=== PATIENT | female | born 1935 | race Caucasian/White ===

== ENCOUNTER 2020-12-13 13:01 | Emergency (ER) | payer MEDICARE, OTHER, SELFPAY ==
[2020-12-13 13:07] VITALS: BP 145/78; PULSE 90; RESP 18; TEMP 36.8; O2SAT 99
--- NOTE | 2020-12-13 13:15 | DI.RAD_ITS ---
Exam(s) XR ELBOW RT COMPLETE EXAM: XR ELBOW RT COMPLETE CLINICAL HISTORY: fall and pain. TECHNIQUE: 2D digital imaging was performed. COMPARISON: No exams were available for comparison FINDINGS: BONES: No acute fracture is present. No bony destructive lesion is seen. JOINTS: The elbow is normally aligned. No joint effusion is seen. Advanced degenerative changes at t he elbow joint. SOFT TISSUE: Normal. IMPRESSION: Unremar degenerative changes. DATA REPOSITORY: RADIATION DOSE DELIVERED:
--- NOTE | 2020-12-13 13:15 | DI.RAD_ITS ---
Exam(s) XR HIP RT COMPLETE AP PELVIS EXAM: XR HIP RT COMPLETE AP PELVIS INDICATION: fall, R hip pain. COMPARISON: No exams were available for comparison TECHNIQUE: 2D digital imaging was performed. FINDINGS: Bilateral hip prostheses. No evidence of dislocation. No fracture. AC joints and pubic symphysis not widened. Degenerative changes at AC joints. Surgical clips in the pelvis. IMPRESSION: Bilateral hip prostheses. No acute abnormality. DATA REPOSITORY: RADIATION DOSE DELIVERED:
--- NOTE | 2020-12-13 13:15 | DI.RAD_ITS ---
Exam(s) XR KNEE RT 3V AP,LAT,BLAIR EXAM: XR KNEE RT 3V AP,LAT,BLAIR CLINICAL HISTORY: anterior pain after fall. TECHNIQUE: 2D digital imaging was performed. COMPARISON: No exams were available for comparison FINDINGS: BONES: No acute fracture is present. No bony destructive lesion is seen. JOINTS: The knee is normally aligned. No joint effusion is seen. Severe degenerative changes greatest in the medial femoral tibial joint. Prominent periarticular spurring. SOFT TISSUE: Vascular calcifications. IMPRESSION: Severe degenerative changes. No acute fracture.. DATA REPOSITORY: RADIATION DOSE DELIVERED:
--- NOTE | 2020-12-13 13:16 | ED.GENADUL_ITS ---
Discharge Plan Disposition Patient Disposition: HOME Condition: Improving Discharge Details Clinical Impression: Arm contusion, Contusion of right knee Primary Care Provider: Kyra Odell ED Provider: Koby Charles Home Meds and New Rx's Prescriptions: Continued aspirin 81 mg Tablet,Delayed Release (Dr/Ec) RF: 0 thyroid 60 mg Tablet PO RF: 0 Discharge Instructions Instructions: Contusion in Adults (ED) Additional Instructions: You underwent x-ray of the pelvis, right hip, right knee, and right elbow. May wear right elbow sling as needed for comfort. We will place a referral to the orthopedic clinic on your behalf. Please call the clinic at [phone] for an appointment time. You certainly have muscular and bony contusions. You may have persistent muscular soreness over 1 to 2 days time. Tylenol and/or ibuprofen as needed for pain. Return to emergency department for any acute concerns. Medical Decision Making Pleasant and delightful 85-year-old female presents from home after trip and fall from ground-level on December 10. She is developed achy right elbow, right hip and right knee pain. She has been ambulatory. Referred for x-ray which does not reveal acute findings or injury. The right elbow does show joint space narrowing and marginal osteophyte formation. She has some persistent swelling there and I will place her in a sling with orthopedic follow-up. Patient reassured. She clearly has contusions and muscular soreness. She is stable and appropriate for outpatient management. She understands indications to seek reevaluation. HPI General Mode of arrival: ambulatory . Date/Time Provider Initiated Documentation: 12/13/20 13:02 . Limitations to Documentation: no limitations . Information obtained by: patient . History of Present Illness 85 year old F presents to the emergency department with the chief complaint of Fall on December 10, described as moderate, Quality is described as dull and constant, and is localized to the right, upper extremity and lower extremity. Patient reports no radiation. Patient started experiencing this day(s) and it has been intermittent. Rest improves symptom(s), Movement worsens symptoms . Patient notes denies headaches, loss of appetite, syncope and weakness. Patient did receive the following treatments prior to arrival, none Related Data Home Medications Medication Instructions Recorded Confirmed aspirin 12/13/20 thyroid mg PO 12/13/20 Allergies Allergy/AdvReac Type Severity Reaction Status Date / Time Penicillins Allergy Unverified 12/13/20 13:12 General Stated Complaint: Orthopedic BRANDON: 3 Review of Systems Narrative: No loss of conscious. No neck or back pain. Denies headache. Recently has been well. Ambulatory. 6 systems reviewed and otherwise negative [facility] Social History Smoking/Tobacco Use Status: Never Smoking risk assessment performed?: Yes Alcohol Intake: never Substance use type: does not use Do you feel safe at home: Yes Do you feel safe in your relationship?: Yes Additional Social history: pt sttates that she just moved to [place] from [facility] Exam Narrative Exam Narrative: GEN: awake, alert, oriented 3. Pleasant, well groomed, inte ractive. HEAD: Normocephalic, atraumatic ENT: Mucous membranes moist, oropharynx unremarkable, External ear exam unremarkable EYES: PERRL, EOMI NECK: Full ROM, no NEPTALI, no menigismus CHEST/RESP: Nontender ABDOMEN: Nontender EXT: Full ROM, no edema, no rash. Tender right medial tibia proximally, no joint laxity. Tender right proximal radius. No tenderness with internal or external rotation of the right hip. Left side unremarkable. Neuro: Grossly normal neurologic exam, conversant, interactive. Psych: Speech fluent, thoughts congruent, affect normal Course Vital Signs Vital signs: Vital Signs Temperature 36.8 C 12/13/20 13:07 Pulse 90 12/13/20 13:07 Respiratory Rate 18 12/13/20 13:07 Blood Pressure 145/78 H 12/13/20 13:07 Pulse Oximetry 99 12/13/20 13:07 Temperature 36.8 C 12/13/20 13:07 Temperature Source Temporal Artery Scan 12/13/20 13:07 Pulse 90 12/13/20 13:07 Respiratory Rate 18 12/13/20 13:07 Blood Pressure 145/78 H 12/13/20 13:07 Pulse Oximetry 99 12/13/20 13:07 Oxygen Delivery Method Room Air 12/13/20 13:07 Oxygen Flow Rate 0 12/13/20 13:07
--- NOTE | 2020-12-13 14:18 | DI.VRAD_ITS ---
PROCEDURE INFORMATION: Exam: XR Right Knee Exam date and time: 12/13/2020 1:16 PM Age: 85 years old Clinical indication: Patient HX: PT fell on 12/10/2020, right knee pain TECHNIQUE: Imaging protocol: XR Right knee. Views: 3 views. COMPARISON: No relevant prior studies available. FINDINGS: Bones/joints: There is marked narrowing of the mediolateral and patellofemoral compartment. With marginal osteophyte formation. No fractures noted. Soft tissues: Evaluation of the soft tissues is remarkable for peripheral vascular calcifications. IMPRESSION: 1. Moderate tricompartment DJD. 2. Peripheral vascular calcifications, which are often associated with diabetes mellitus. Dictated and Authenticated by: Daniel Ray MD. Ordering:SALAZAR Whalen MD
--- NOTE | 2020-12-13 14:26 | DI.VRAD_ITS ---
PROCEDURE INFORMATION: Exam: XR Right Elbow Exam date and time: 12/13/2020 1:16 PM Age: 85 years old Clinical indication: Patient HX: Right elbow pain, pain radiating up her am. PT fell on 12/10/2020 TECHNIQUE: Imaging protocol: XR Right elbow. Views: 3 or more views. COMPARISON: No relevant prior studies available. FINDINGS: Bones/joints: There is joint space narrowing and marginal osteophyte formation involving the radiocapitellar joint. A calcified intra-articular body is noted. Soft tissues: Normal. IMPRESSION: No acute fracture is noted. Chronic degenerative changes are noted. Dictated and Authenticated by: Daniel Ray MD. Ordering:SALAZAR Whalen MD
--- NOTE | 2020-12-13 14:27 | DI.VRAD_ITS ---
PROCEDURE INFORMATION: Exam: XR Right Hip Exam date and time: 12/13/2020 1:16 PM Age: 85 years old Clinical indication: Prior surgery; Surgery date: 6+ months; Surgery type: PT had both hips replaced; Patient HX: PT fell 12/10/2020, right hip pain TECHNIQUE: Imaging protocol: XR Right hip. Views: 2 or 3 views hip with pelvis when performed. COMPARISON: No relevant prior studies available. FINDINGS: Bones/joints: Status post right and left total hip arthroplasty. No acute fracture or dislocation is seen. Soft tissues: Evaluation of the soft tissues is remarkable for peripheral vascular calcifications. IMPRESSION: 1. Status post bilateral total hip arthroplasties. No evidence of fracture or loosening. 2. Peripheral vascular calcifications, which are often associated with diabetes mellitus. Dictated and Authenticated by: Daniel Ray MD. Ordering:SALAZAR Whalen MD
== END 2020-12-13 15:10 | disposition home or self-care (01) ==
PROVIDERS: Emergency Provider Emergency Medicine; PCP Family Medicine
DX: S50.01XA Contusion of right elbow, initial encounter (principal); S80.01XA Contusion of right knee, initial encounter; M25.551 Pain in right hip; W18.30XA Fall on same level, unspecified, initial encounter; Z96.643 Presence of artificial hip joint, bilateral
CPT/HCPCS: 73562; 99284; 73080; 73502; 99283

== ENCOUNTER → 2020-12-22 12:59 | Outpatient (BNVA) | payer MEDICARE, OTHER, SELFPAY | PROVIDERS: PCP Family Medicine; Referring Provider Family Medicine; Visit Provider Physician Assistant | DX: S40.021A Contusion of right upper arm, initial encounter (principal); S80.01XA Contusion of right knee, initial encounter; W10.9XXA Fall (on) (from) unspecified stairs and steps, initial encounter; M19.021 Primary osteoarthritis, right elbow; M17.11 Unilateral primary osteoarthritis, right knee | CPT/HCPCS: 99214 ==

== ENCOUNTER 2020-12-24 03:34 | Outpatient (CLI) | payer MEDICARE, OTHER, SELFPAY ==
[2020-12-24 13:50] LABS: Abs Immature Grans 0.06 10^3/uL (0.0-0.06); Absolute Basophil Count 0.06 10^3/uL (0.0-0.2); Absolute Eosinophil Count 0.29 10^3/uL (0.0-0.7); Absolute Lymphocyte Count 2.51 10^3/uL (1.2-3.4); Absolute Monocyte Count 0.52 10^3/uL (0.1-0.8); Absolute Neutrophil Count 3.68 10^3/uL (1.2-6.7); Basophils % 0.8; Eosinophils % 4.1; HCT 36.1 % (36.0-46.0); HGB 12.2 g/dL (11.2-15.7); Immature Grans % 0.8; Lymphocytes % 35.3; MCH 30.3 pg (27.0-33.0); MCHC 33.8 % (32.0-36.0); MCV 89.6 fL (80-95); MPV 9.8 fL (8.0-11.0); Monocytes % 7.3; Neutrophils % 51.7; Nucleated RBC 0 %; Platelet Count 282 10^3/uL (130-400); RBC 4.03 10^6/uL (3.93-5.22); RDW 13.5 % (11.7-14.6); RDW-SD 44.5 fL; WBC 7.12 10^3/uL (4.4-10.8)
== END 2020-12-24 03:35 | disposition home or self-care (01) ==
LOC: LBO 03:34
PROVIDERS: PCP Family Medicine; Visit Provider Family Medicine
DX: R19.5 Other fecal abnormalities (principal)
CPT/HCPCS: 36415; 82728; 83540; 85025

== ENCOUNTER → 2023-01-16 08:37 | Outpatient (BNVA) | payer MEDICARE, OTHER, SELFPAY | PROVIDERS: PCP Family Medicine; Referring Provider Family Medicine | DX: M17.11 Unilateral primary osteoarthritis, right knee (principal); M17.12 Unilateral primary osteoarthritis, left knee | CPT/HCPCS: 20610; J1040 ==

== ENCOUNTER → 2023-05-29 09:44 | Outpatient (BNVA) | payer MEDICARE, SELFPAY | PROVIDERS: PCP Family Medicine; Referring Provider Family Medicine; Visit Provider Student in an Organized Health Care Education/Training Program | DX: M17.11 Unilateral primary osteoarthritis, right knee (principal); M17.12 Unilateral primary osteoarthritis, left knee | CPT/HCPCS: 20610; J1040 ==

== ENCOUNTER 2023-07-13 14:03 | Outpatient (CLI) | payer MEDICARE, SELFPAY ==
--- OUTSIDE RECORDS SUMMARY | 2023-07-13 14:06 | XMS_ITS | CCD ---
Author Name Unknown Address [address] [place] [address] [phone] Organization Unknown Address [address] [place] [address] [phone] Care Team Providers Care Coding Director Name Role Phone JAY COBB Attending Physician [phone] Vital Signs Unknown or Not Available. Allergies Allergy Code Allergy Type Reaction Status PCN (penicillin) 0 Drug allergy Active Procedures Unknown or Not Available. History of Immunizations Unknown or Not Available. Problems Unknown or Not Available. Results Unknown or Not Available. Active Medications Unknown or Not Available. Medications Administered During Visit Unknown or Not Available. Encounters Encounter Diagnosis Diagnosis Code Start Date Obstructive sleep apnea (adult) (pediatric) G473 3 12/20/2022 Social History Smoking Status Code Start Date End Date Never smoker [id number] Patient Decision Aids Unknown or Not Available. Discharge Instructions You were admitted to [facility] on 12/20/2022 10:36 with a principal diagnosis of Obstructive sleep apnea (adult) (pediatric) You were discharged from [facility] on 12/20/2022 10:36 Should you have any questions prior to discharge, please contact a member of your healthcare team. If you have left the hospital and have any questions, please contact your primary care physician. Chief Complaint and Reason For Visit Unknown or Not Available. Function Status Unknown or Not Available. Plan of Care Unknown or Not Available. Referral/Transition of Care Unknown or Not Available.
--- OUTSIDE RECORDS SUMMARY | 2023-07-13 14:06 | XMS_ITS | CCD ---
Author Name Unknown Address [address] [place] [address] [id number] Organization Unknown Address [address] [place] [address] [phone] Care Team Providers Care Business Development Representative Name Role Phone HEBERT BERNAL Attending Physician [phone] Vital Signs Unknown or Not Available. Allergies Allergy Code Allergy Type Reaction Status PCN (penicillin) 0 Drug allergy Active Procedures Unknown or Not Available. History of Immunizations Unknown or Not Available. Problems Unknown or Not Available. Results Unknown or Not Available. Active Medications Unknown or Not Available. Medications Administered During Visit Unknown or Not Available. Encounters Encounter Diagnosis Diagnosis Code Start Date Dizziness and giddiness [id number] 12/13/19 23 Social History Smoking Status Code Start Date End Date Never smoker [id number] Patient Decision Aids Unknown or Not Available. Discharge Instructions You were admitted to [facility] on 12/12/2022 09:42 with a principal diagnosis of Dizziness and giddiness You were discharged from [facility] on 12/12/2022 09:42 Should you have any questions prior to [...]
--- OUTSIDE RECORDS SUMMARY | 2023-07-13 14:06 | XMS_ITS | CCD ---
Author Name Unknown Address [address] [place] [address] [phone] Organization Unknown Address [address] [place] [address] [phone] Care Team Providers Care Train Gateman Name Role Phone JAY COBB Attending Physician [phone] Vital Signs Unknown or Not Available. Allergies Allergy Code Allergy Type Reaction Status PCN (penicillin) 0 Drug allergy Active Procedures Unknown or Not Available. History of Immunizations Unknown or Not Available. Problems Unknown or Not Available. Results BUN/CREATININE RATIO FOR RAD IOLOGY* - Collect Date/Time: 02/21/2023 09:32 Test Name Code Test Result Test Units Test Ref Rang e BUN 3094-0 24 mg/dL L=6 H=25 CREATININE 2160-0 1.21 mg/dL L=0.51 H=0.95 BUN/CREATININE RATIO 3097-3 19.8 AGE 87 years eGFR (non-Afr.Amer) 34975-3 42 mL/min eGFR (Afr-Marshallese) 24929-8 51 mL/min Active Medications Unknown or Not Available. Medications Administered During Visit Unknown or Not Available. 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 Discharge Instructions You were admitted to [facility] on 02/21/2023 09:21 with a principal diagnosis of Benign neoplasm of meninges, unspecified You had the following tests done:BUN/CREATININE RATIO FOR RADIOLOGY* You were discharged from [facility] on 02/21/2023 09:21 Should you have any questions prior to discharge, please contact a member of your healthcare team. If you have left the hospital and have any questions, please contact your primary care physician. Chief Complaint and Reason For Visit Chief Complaint Date of Onset MENINGIOMA Function Status Unknown or Not Available. Plan of Care Unknown or Not Available. Referral/Transition of Care Unknown or Not Available.
--- OUTSIDE RECORDS SUMMARY | 2023-07-13 14:06 | XMS_ITS | CCD ---
Author Name Unknown Address [address] [place] [address] [phone] Organization Unknown Address [address] [place] [address] [phone] Care Team Providers Care Nail Cutter Name Role Phone JAY COBB Attending Physician [phone] Vital Signs Unknown or Not Available. Allergies Allergy Code Allergy Type Reaction Status PCN (penicillin) 0 Drug allergy Active Procedures Unknown or Not Available. History of Immunizations Unknown or Not Available. Problems Unknown or Not Available. Results COMPREHENSIVE METABOLIC PANE L (CMP) - Collect Date/Time: 10/21/2022 09:56 Test Name Code Test Result Test Units Test Ref Rang e GLUCOSE 2345-7 90 mg/dL L=70 H=116 BUN 3094-0 24 mg/dL L=6 H=25 CREATININE 2160-0 1.25 mg/dL L=0.51 H=0.95 SODIUM SERUM 2951-2 142 mmol/L L=136 H=145 POTASSIUM SERUM 2823-3 3.3 mmol/L L=3.4 H=5 .2 CHLORIDE SERUM 2075-0 103 mmol/L L=96 H=110 CARBON DIOXIDE (CO2) 2028-9 34 mmol/L L=22 H=34 ANION GAP 29431-7 5.5 mmol/L CALCIUM SERUM 17787-5 9.6 mg/dL L=8.2 H=10. 2 BILIRUBIN TOTAL 1975-2 0.3 mg/dL L=0.0 H=1 .3 ALK. PHOS. 6768-6 85 U/L L=46 H=116 SGOT (AST) 1920-8 16 U/L L=15 H=37 SGPT (ALT) 1742-6 15 U/L L=12 H=78 TOTAL PROTEIN 2885-2 7.2 gm/dL L=6.0 H=8.0 ALBUMIN 1751-7 3.5 gm/dL L=3.4 H=5.0 AGE 86 years eGFR (non-Afr.Amer.) 04138-5 41 mL/min eGFR (Afr-German) 05389-3 49 mL/min TSH THYROID STIMULATING HORM ONE* - Collect Date/Time: 10/21/2022 09:56 Test Name Code Test Result Test Units Test Ref Rang e TSH 3014-8 1.974 uIU/mL L=0.360 H=3.74 0 CBC W/ DIFFERENTIAL* - Colle ct Date/Time: 10/21/2022 09:56 Test Name Code Test Result Test Units Test Ref Rang e WBC 6690-2 7.49 th/cmm L=5.00 H=10.00 NEUT % 62.4 % L=40.0 H=80.0 LYMPH % 26.4 % L=10.0 H=50.0 MONO % 28285-3 6.3 % L=2.0 H=12.0 EOS % 3.5 % L=0.0 H=8.0 BASO % 1.1 % L=0.0 H=3.0 IG % 2514-8 0.3 % L=0.0 H=1.1 NRBC % 83081-5 0.0 % L=0.0 H=0.0 NEUT abs count 751-8 4.7 th/cmm L=1.6 H=8. 4 LYMPH abs count 731-0 2.0 th/cmm L=1.5 H=4 .0 MONO abs count 742-7 0.5 th/cmm L=0.2 H=1. 0 EOS abs count 711-2 0.3 th/cmm L=0.0 H=0.5 BASO abs count 704-7 0.1 th/cmm L=0.0 H=0. 2 IG abs count 79430-7 0.0 th/cmm L=0.0 H=0.1 NRBC abs count 28513-3 0.0 mil/cmm L=0.0 H=0. 0 RBC 789-8 3.99 mil/cmm L=3.90 H=5.40 HEMOGLOBIN 718-7 11.9 gm/dL L=12.0 H=16.0 HEMATOCRIT 4544-3 37 % L=37 H=47 MCV 787-2 93 fL L=82 H=92 MCH 785-6 29.8 pg L=27.0 H=31.0 MCHC 786-4 32.2 % L=32.0 H=36.0 RDW-SD 788-0 45.4 fL L=39.0 H=49.0 PLATELET COUNT 777-3 282 th/cmm L=150 H=45 0 SED RATE* - Collect Date/Sridhar e: 10/21/2022 09:56 Test Name Code Test Result Test Units Test Ref Rang e SED. RATE 4537-7 25 mm/hr L=0 H=30 Active Medications Unknown or Not Available. Medications Administered During Visit Unknown or Not Available. Encounters Encounter Diagnosis Diagnosis Code Start Date Fatigue [id number] 10/21/2022 Social History Smoking Status Code Start Date End Date Never smoker [id number] Patient Decision Aids Unknown or Not Available. Discharge Instructions You were admitted to [facility] on 10/21/2022 08:45 with a principal diagnosis of Other fatigue You had the following tests done:CBC W/ DIFFERENTIAL*COMPREHENSIVE METABOLIC PANEL (CMP)SED RATE*TSH THYROID STIMULATING HORMONE* You were discharged from [facility] on 10/21/2022 08:46 Should you have any questions prior to [...]
--- OUTSIDE RECORDS SUMMARY | 2023-07-13 14:06 | XMS_ITS | CCD ---
Author Name Unknown Address [address] [place] [address] [phone] Organization Unknown Address [address] [place] [address] [phone] Care Team Providers Care Tap Dancer Name Role Phone SHANIQUE RICO Attending Physician [phone] SHANIQUE RICO Rounding (Secondary) Physician [phone] Vital Signs Unknown or Not Available. Allergies Allergy Code Allergy Type Reaction Status PCN (penicillin) 0 Drug allergy Active Procedures Unknown or Not Available. History of Immunizations Unknown or Not Available. Problems Unknown or Not Available. Results Unknown or Not Available. Active Medications Unknown or Not Available. Medications Administered During Visit Unknown or Not Available. 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 Discharge Instructions You were admitted to [facility] on 10/12/2022 00:00 with a principal diagnosis of Bilateral primary osteoarthritis of knee You were discharged from [facility] on 10/12/2022 00:00 Should you have any questions prior to [...]
--- OUTSIDE RECORDS SUMMARY | 2023-07-13 14:06 | XMS_ITS | CCD ---
Author Name Unknown Address [address] [place] [address] [phone] Organization Unknown Address [address] [place] [address] [phone] Care Team Providers Care Construction Project Assistant Name Role Phone JAY COBB Attending Physician [phone] Vital Signs Unknown or Not Available. Allergies Allergy Code Allergy Type Reaction Status PCN (penicillin) 0 Drug allergy Active Procedures Unknown or Not Available. History of Immunizations Unknown or Not Available. Problems Unknown or Not Available. Results Unknown or Not Available. Active Medications Unknown or Not Available. Medications Administered During Visit Unknown or Not Available. Encounters Encounter Diagnosis Diagnosis Code Start Date Fatigue 64305741 10/27/2022 Social History Smoking Status Code Start Date End Date Never smoker [id number] Patient Decision Aids Unknown or Not Available. Discharge Instructions You were admitted to [facility] on 10/27/2022 14:11 with a principal diagnosis of Other fatigue You were discharged from [facility] on 10/27/2022 14:11 Should you have any questions prior to [...]
--- OUTSIDE RECORDS SUMMARY | 2023-07-13 14:06 | XMS_ITS | CCD ---
Author Name Unknown Address [address] [place] [address] [phone] Organization Unknown Address [address], [place] [phone] Care Team Providers Care Mortgage Specialist Name Role Phone SHANIQUE RICO Attending Physician [phone] SHANIQUE RICO Rounding (Secondary) Physician [phone] Vital Signs Unknown or Not Available. Allergies [...] Diagnosis Diagnosis Code Start Date Idiopathic osteoarthritis [id number] 2022 Social History Smoking Status Code Start Date End Date Never smoker [id number] Patient Decision Aids Unknown or Not Available. Discharge Instructions You were admitted to [facility] on 10/19/2022 12:29 with a principal diagnosis of Bilateral primary osteoarthritis of knee You were discharged from [facility] on 10/19/2022 00:00 Should you have any questions prior [...]
--- OUTSIDE RECORDS SUMMARY | 2023-07-13 14:06 | XMS_ITS | Continuity of Care Document ---
Author Name Unknown Organization [facility] Address [address] [place] [address] Care Team Providers Care Photographic Platemaker Name Role Phone KIERSTEN LUNSFORD MD Primary Care Physician Encounter LTTL_AR FIN NBR [id number] Date(s): 11/21/22 - 11/21/22 [facility] [address] [place] [address]- Discharge Disposition: Home or Self Care Attending Physician: KIERSTEN LUNSFORD MD Admitting Physician: KIERSTEN LUNSFORD MD Referring Physician: KIERSTEN LUNSFORD MD Results Radiology Reports * Exam Date Time Procedure Performing Provider Status 11/21/22 3:31 PM US Lower Ext Venous Duplex Right Craig Garland (Verified) Notes: (US Lower Ext Venous Duplex Right) Reason For Exam: DVT vs bakers cyst US Lower Ext Venous Duplex Right EXAM DESCRIPTION: US Lower Ext Venous Duplex Right 11/21/2022 INDICATION: DVT VS BAKERS CYST TECHNIQUE: Static images of real-time sonography utilizing B-mode and color Doppler with spectral waveform analysis of the right lower extremity deep venous system was performed. FINDINGS: Right common femoral vein, femoral vein, visualized proximal profundus femoral vein, popliteal vein as well as visualized portions of the posterior tibial and peroneal veins demonstrate normal compressibility, color flow and augmentation with no evidence of DVT Ovoid hypoechoic collection with internal echoes in the right popliteal fossa consistent with complex popliteal cyst measuring 6.4 x 4.7 x 2.2 cm. IMPRESSION: No evidence of right lower extremity DVT Complex popliteal cyst measuring 6.4 x 4.7 x 2.2 cm. JOB #: [id number] Final Signed by: Shadi Nguyen MD Signed (Electronic Signature): 11/21/2022 3:44 pm US.doppler Lower extremity vein - right * Shadi Nguyen MD: VERIFY, VERIFY Event Display: Report EXAM DESCRIPTION: US Lower Ext Venous Duplex Right 11/21/2022 INDICATION: DVT VS BAKERS CYST TECHNIQUE: Static images of real-time sonography utilizing B-mode and color Doppler with spectral waveform analysis of the right lower extremity deep venous system was performed. FINDINGS: Right common femoral vein, femoral vein, visualized proximal profundus femoral vein, popliteal vein as well as visualized portions of the posterior tibial and peroneal veins demonstrate normal compressibility, color flow and augmentation with no evidence of DVT Ovoid hypoechoic collection with internal echoes in the right popliteal fossa consistent with complex popliteal cyst measuring 6.4 x 4.7 x 2.2 cm. IMPRESSION: No evidence of right lower extremity DVT Complex popliteal cyst measuring 6.4 x 4.7 x 2.2 cm. JOB #: [id number] Final Signed by: Shadi Nguyen MD Signed (Electronic Signature): 11/21/2022 3:44 pm Patient Care team information Care Team Personnel Name: KIERSTEN LUNSFORD MD Position: No Access Member Role: Primary Care Physician Address: Address: [address] [place] [id number] [place] [address]
--- OUTSIDE RECORDS SUMMARY | 2023-07-13 14:07 | XMS_ITS | CCD ---
Author Name Unknown Address [address] [place] [address] [id number] Organization Unknown Address [address] [place] [address] [id number] Care Team Providers Care Crime Laboratory Analyst Name Role Phone KIERSTEN LUNSFORD Attending Physician [phone] Vital Signs Unknown or Not Available. Allergies Allergy Code Allergy Type Reaction Status PCN (penicillin) 0 Drug allergy Active Procedures Unknown or Not Available. History of Immunizations Unknown or Not Available. Problems Unknown or Not Available. Results BUN/CREATININE RATIO FOR RAD IOLOGY* - Collect Date/Time: 05/13/2022 09:31 Test Name Code Test Result Test Units Test Ref Rang e BUN 3094-0 28 mg/dL L=6 H=25 CREATININE 2160-0 1.14 mg/dL L=0.51 H=0.95 BUN/CREATININE RATIO 3097-3 24.6 AGE 86 years eGFR (non-Afr.Amer) 45007-9 45 mL/min eGFR (Afr-Qatari) 95358-2 55 mL/min Active Medications Unknown or Not Available. Medications Administered During Visit Unknown or Not Available. Encounters Encounter Diagnosis Diagnosis Code Start Date Diverticulosis of large inte delisa without perforation or abscess without bleeding K5730 05/13/2022 Social History Smoking Status Code Start Date End Date Never smoker [id number] Patient Decision Aids Unknown or Not Available. Discharge Instructions You were admitted to [facility] on 05/13/2022 08:58 with a principal diagnosis of Diverticulosis of large intestine without perforation or abscess without bleeding You had the following tests done:BUN/CREATININE RATIO FOR RADIOLOGY* You were discharged from [facility] on 05/13/2022 08:58 Should you have any questions prior to discharge, please contact a member of your healthcare team. If you have left the hospital and have any questions, please contact your primary care physician. Chief Complaint and Reason For Visit Chief Complaint Date of Onset ABD PAIN Function Status Unknown or Not Available. Plan of Care Unknown or Not Available. Referral/Transition of Care Unknown or Not Available.
--- OUTSIDE RECORDS SUMMARY | 2023-07-13 14:07 | XMS_ITS | CCD ---
Author Name Unknown Address [address] [place] [address] [id number] Organization Unknown Address [address] [place] [address] [phone] Care Team Providers Care Lead Burner Name Role Phone KIERSTEN LUNSFORD Attending Physician [phone] Vital Signs Unknown or Not Available. Allergies Allergy Code Allergy Type Reaction Status PCN (penicillin) 0 Drug allergy Active Procedures Unknown or Not Available. History of Immunizations Unknown or Not Available. Problems Unknown or Not Available. Results Unknown or Not Available. Active Medications Unknown or Not Available. Medications Administered During Visit Unknown or Not Available. Encounters Encounter Diagnosis Diagnosis Code Start Date Spinal stenosis, cervical region [id number] 05/25/2022 Social History Smoking Status Code Start Date End Date Never smoker [id number] Patient Decision Aids Unknown or Not Available. Discharge Instructions You were admitted to [facility] on 05/25/2022 14:47 with a principal diagnosis of Spinal stenosis, cervical region You were discharged from [facility] on 05/25/2022 14:47 Should you have any questions prior to discharge, please contact a member of your healthcare team. If you have left the hospital and have any questions, please contact your primary care physician. Chief Complaint and Reason For Visit Chief Complaint Date of Onset NECK PAIN Function Status Unknown or Not Available. Plan of Care Unknown or Not Available. Referral/Transition of Care Unknown or Not Available.
--- OUTSIDE RECORDS SUMMARY | 2023-07-13 14:07 | XMS_ITS | CCD ---
Author Name Unknown Address [address] [place] [address] [id number] Organization Unknown Address [address] [place] [address] [id number] Care Team Providers Care Edger Technician Name Role Phone KIERSTEN LUNSFORD Attending Physician [phone] Vital Signs Unknown or Not Available. Allergies Unknown or Not Available. Procedures Unknown or Not Available. History of Immunizations Unknown or Not Available. Problems Unknown or Not Available. Results GIARDIA AND CRYPTOSPORIDIUM EXAM (STOOL) - Collect Date/Time: 12/27/2021 10:00 Test Name Code Test Result Test Units Test Ref Rang e Giardia andCryptosporidium Crypt osporidium Antigen Neg and Giardia Antigen Neg N/A (See Note) Active Medications Unknown or Not Available. Medications Administered During Visit Unknown or Not Available. Encounters Encounter Diagnosis Diagnosis Code Start Date Abdominal pain [id number] 12/27/2021 Social History Unknown or Not Available. Patient Decision Aids Unknown or Not Available. Discharge Instructions You were admitted to [facility] on 12/27/2021 10:54 with a principal diagnosis of Unspecified abdominal pain You had the following tests done:GIARDIA AND CRYPTOSPORIDIUM EXAM (STOOL) You were discharged from [facility] on 12/27/2021 10:54 Should you have any questions prior to [...]
--- OUTSIDE RECORDS SUMMARY | 2023-07-13 14:07 | XMS_ITS | CCD ---
Author Name Unknown Address [address] [place] [address] [id number] Organization Unknown Address [address] [place] [address] [phone] Care Team Providers Care In Flight Refueling Craftsman Name Role Phone KIERSTEN LUNSFORD Attending Physician [phone] Vital Signs Unknown or Not Available. Allergies Allergy Code Allergy Type Reaction Status PCN (penicillin) 0 Drug allergy Active Procedures Unknown or Not Available. History of Immunizations Unknown or Not Available. Problems Unknown or Not Available. Results Unknown or Not Available. Active Medications Unknown or Not Available. Medications Administered During Visit Unknown or Not Available. Encounters Encounter Diagnosis Diagnosis Code Start Date Bilateral primary osteoarthritis of knee M170 03/22/2022 Social History Unknown or Not Available. Patient Decision Aids Unknown or Not Available. Discharge Instructions You were admitted to [facility] on 03/22/2022 12:51 with a principal diagnosis of Bilateral primary osteoarthritis of knee You were discharged from [facility] on 03/22/2022 12:51 Should you have any questions prior to [...]
[2023-07-14 20:44] LABS: Milk, IgE <0.10 kU/L (<0.70)
== END 2023-07-13 14:04 | disposition home or self-care (01) ==
PROVIDERS: PCP Family Medicine; Visit Provider Physician Assistant
DX: K52.9 Noninfective gastroenteritis and colitis, unspecified (principal)
CPT/HCPCS: 36415; 86003

== ENCOUNTER 2023-07-25 08:26 | Emergency (ER) | payer MEDICARE, SELFPAY ==
[2023-07-25 08:30] VITALS: BP 174/70; PULSE 82; RESP 17; TEMP 36.3; O2SAT 97
--- NOTE | 2023-07-25 08:45 | DI.CT_ITS ---
Exam(s) CT HEAD CERVICAL SPINE WO EXAM: CT HEAD CERVICAL SPINE WO CLINICAL HISTORY: fall, back pain and headache. TECHNIQUE: Imaging Protocol: Axial computed tomography images with coronal and sagittal reformatted images were created and reviewed COMPARISON: No exams were available for comparison FINDINGS: CT Head: Ventricles and Extra axial spaces: Normal in size and morphology for the patient's age. Hemorrhage: None. Cerebral parenchyma: There are areas of decreased attenuation in the white matter consistent with sma ll vessel ischemic disease. No acute mass effect is identified. Midline shift: None. Brainstem/Cerebellum: Normal. Calvarium: Normal. Visualized Paranasal sinuses/Mastoids: Clear. Soft Tissues: Unremarkable. CT Cervical Spine: Bones: No acute fracture or subluxation. Soft Tissues: Unremarkable. Lung Apices: Clear. Thyroid gland: The thyroid gland is enlarged and heterogeneous. There is a 2 cm area of decreased at tenuation in the inferior pole of the left thyroid gland. A nonemergent thyroid ultrasound should be obtained for further evaluation. IMPRESSION: 1. No acute intracranial process. 2. No acute fracture or subluxation in the cervical spine. 3. Question of a 2 cm left thyroid nodule. Nonemergent thyroid ultrasound should be obtained for fur ther evaluation. Unexpected findings RADIATION DOSE DELIVERED: 1,441.2mGy.cm Total DLP DATA REPOSITORY: All CT scans at this facility are submitted to the National Radiology Data Registry (NRDR) Dose Index Registry (DIR) with the [employer] (ACR). RADIATION OPTIMIZATION: All CT scans at this facility use at least one of these dose optimization te chniques: automated exposure control; mA and/or kV adjustment per patient size (includes targeted exa ms where dose is matched to clinical indication); or iterative reconstruction.
--- NOTE | 2023-07-25 08:45 | DI.CT_ITS ---
Exam(s) CT LUMBAR SPINE RECONS CT CHEST/ABD/PEL W EXAM: CT CHEST/ABD/PEL W and CT lumbar spine recons CLINICAL HISTORY: fall, back and ruq/rlq pain TECHNIQUE: Imaging Protocol: Axial computed tomography images with coronal and sagittal reformatted images were created and reviewed CONTRAST MATERIAL: Intravenous: Omnipaque 350 contrast volume:100 mL Oral: No COMPARISON: CT CT LUMBAR SPINE RECONS from 07/25/2023 FINDINGS: CHEST: Tracheobronchial tree: Patent where visualized. Pulmonary parenchyma: No consolidation or dominant measurable mass. There is atelectasis in the lung bases. Visualized thyroid gland: 2.7 cm heterogeneously enhancing mass in the lower pole of the left lobe of the thyroid gland. Multiple thyroid nodules are seen bilaterally. The largest on the right measure s 1.5 cm. Nonemergent thyroid ultrasound is recommended for further evaluation. Mediastinum and Tesha: No dominant adenopathy or fluid collection. The esophagus is unremarkable. Pleura: No effusion or pneumothorax. Heart: The heart is not dilated. Coronary artery calcifications are present. No pericardial effusion . Pulmonary arteries: No pulmonary emboli are identified. Aorta: Thoracic aorta non-dilated. No evidence of dissection. Atherosclerosis is present. Lymph nodes: Within normal limits. Soft tissues: Unremarkable. Bones:Within normal limits for the patient's age. ABDOMEN: Liver: Normal density. No suspicious masses. Portal, Superior Mesenteric, and Splenic Veins: Unremarkable. Gallbladder and Biliary Tract: The gallbladder is not visualized. No significant biliary ductal dila tation is present. Pancreas: Normal density, no abnormal calcifications or inflammatory process. Spleen: Normal. Adrenals: No masses seen. Kidneys: Normal size, contour and axis. No radiodense stones or obstructive uropathy. There are tiny hypodensities seen in the kidneys bilaterally. They are too small for further characterization but l ikely reflect small cysts. No follow-up is recommended. Abdominal Aorta: Abdominal portion non-dilated. Atherosclerosis. Bowel: There is diverticulosis of the colon without evidence of acute diverticulitis. There is no ev idence of bowel wall thickening or bowel obstruction. The stomach is incompletely distended limiting evaluation. No evidence of appendicitis. Peritoneal Cavity: No ascites, collection or mesenteric inflammatory response. No free air. Surgica l clips are seen in the retroperitoneum bilaterally. Lymph Nodes: Within normal limits. Bones: Within normal limits for the patient's age. There are bilateral total hip replacements. Soft Tissues: Unremarkable. PELVIS: Bladder: The urinary bladder is largely obscured by artifact from the patient's bilateral hip replace ments. Reproductive Organs: The area of the reproductive organs is obscured by artifact from the patient's b ilateral hip replacements. Lymph Nodes: Within normal limits. Bones: Within normal limits. Lumbar spine CT recons: There is a mild left convex curvature centered at L1. Degenerative changes a re present throughout the lumbar spine. No acute fracture or subluxation is present. IMPRESSION: 1. No acute pulmonary process. 2. Multilobular enlarged thyroid gland. 2.6 cm nodule in the inferior pole of the left thyroid gland . Nonemergent thyroid ultrasound is recommended for further evaluation. 3. No acute abdominal or pelvic process. 4. No acute fracture or subluxation in the lumbar spine. 5. Incidental findings in the abdomen and pelvis as described above. RADIATION DOSE DELIVERED: 948.7mGy.cm Total DLP DATA REPOSITORY: All CT scans at this facility are submitted to the National Radiology Data Registry (NRDR) Dose Index Registry (DIR) with the [employer] (ACR). RADIATION OPTIMIZATION: All CT scans at this facility use at least one of these dose optimization te chniques: automated exposure control; mA and/or kV adjustment per patient size (includes targeted exa ms where dose is matched to clinical indication); or iterative reconstruction.
--- NOTE | 2023-07-25 08:49 | ED.GENADUL_ITS ---
HPI General Date/Time Provider Initiated Documentation: 07/25/23 08:29 . HPI Narrative: This 87-year-old female presents has fallen Monday which she landed directly on her buttocks after a slip and fall on ice. States she felt pain in her neck instantly and has felt fuzzy but denies hitting her head. Denies history of coagulopathy. Reports pain to her back, right lower quadrant, right upper quadrant, and right pelvis region, she has been having some pain with ambulation. Saw Dr. Colin who ordered imaging reportedly but there was no order in place so she presents here for assessment Related Data Home Medications Medication Instructions Recorded Confirmed aspirin 81 mg tablet,delayed 81 mg PO DAILY 12/13/20 07/25/23 release ergocalciferol (vitamin D2) 1,250 1,250 mcg PO QMONTH 12/22/20 07/25/23 mcg (50,000 unit) capsule famotidine 20 mg tablet 20 mg PO DAILY 12/22/20 07/25/23 hydrochlorothiazide 25 mg tablet 25 mg PO DAILY 12/22/20 07/25/23 losartan 50 mg tablet 100 mg PO DAILY 12/22/20 07/25/23 amoxicillin 500 mg tablet 500 mg PO .FOR DENTAL 10/21/22 07/25/23 fluoride (sodium) 1.1 % dental 1 applic dental DAILY 10/21/22 07/25/23 paste fluticasone propionate 50 1 spray intranasal DAILY 10/21/22 07/25/23 mcg/actuation nasal spray,suspension (Children's Flonase Allergy Relief) levothyroxine 75 mcg capsule 75 mcg PO DAILY 10/21/22 07/25/23 sertraline 25 mg tablet 25 mg PO DAILY 10/21/22 07/25/23 conjugated estrogens 0.625 mg/gram 0.625 mg vaginal DAILY 12/20/22 07/25/23 vaginal cream (Premarin) magnesium L-lactate 84 mg 84 mg PO DAILY 12/20/22 07/25/23 tablet,extended release (Magtab) meclizine 25 mg tablet 25 mg PO TID PRN 12/20/22 07/25/23 mirabegron 25 mg tablet,extended 25 mg PO DAILY 12/20/22 07/25/23 release 24 hr (Myrbetriq) celecoxib 200 mg capsule 200 mg PO BID #60 caps 01/16/23 07/25/23 Previous Rx's Medication Instructions Recorded celecoxib 200 mg capsule 200 mg PO BID #60 caps 01/16/23 Allergies Allergy/AdvReac Type Severity Reaction Status Date / Time gabapentin Allergy Intermediate Skin Rash Verified 07/25/23 08:41 lisinopril Allergy Unknown Other (See Verified 07/25/23 08:41 Comment) Penicillins Allergy Unknown Skin Rash Unverified 07/25/23 08:41 General Stated Complaint: Fall/Non TraumaCriteria BRANDON: 3 Course Vital Signs Vital signs: Vital Signs Temperature 36.3 C L 07/25/23 08:30 Pulse 82 07/25/23 08:30 Respiratory Rate 17 07/25/23 08:30 Blood Pressure 174/70 H 07/25/23 08:30 Pulse Oximetry 97 07/25/23 08:30 Temperature 36.3 C L 07/25/23 08:30 Temperature Source Temporal Artery Scan 07/25/23 08:30 Pulse 82 07/25/23 08:30 Respiratory Rate 17 07/25/23 08:30 Respiratory Effort Normal, Non-Labored 07/25/23 08:42 Blood Pressure 174/70 H 07/25/23 08:30 Blood Pressure Position Sitting 07/25/23 08:30 Pulse Oximetry 97 07/25/23 08:30 Oxygen Delivery Method Room Air 07/25/23 08:30 Oxygen Flow Rate 0 07/25/23 08:30 Medical Decision Making This 87-year-old female presents with report of fall on ice landing on her buttocks presenting with abdominal pain back and neck pain Patient has no visible signs of trauma but is tender to her cervical spine, thoracic, and lumbar spine, she has tenderness in right upper and right lower quadrant and tenderness along the sacroiliac region of her back She has no rebound or guarding in her abdomen, she GCS 15, cranial nerves II through intact, ambulatory with antalgic but steady gait, pupils equal round reactive to light and accommodation, speech intact, lungs clear to auscultation bilaterally, cardiac rate rhythm regular CT chest abdomen and pelvis, cervical spine and head do not show evidence of acute abnormality, thyroid nodule noted, will follow-up with PCP Ambulatory steady gait, has cane which she will use at home and take Tylenol as needed for Pain Return precautions reviewed and patient expressed understanding Quality:SDOH Health Related Social Needs: No Data to Display PFSH All Active Problems (Updated 07/25/23 @ 11:12 by NIKIA Lambert) Cervical strain (Acute) Contusion (Acute) Lumbar strain (Acute) Osteoarthritis of right knee (Acute) Primary osteoarthritis of left knee (Acute) Steroid injection: 01/16/2023 Previous injections including steroid injections and Synvisc injections at [facility]. Impacted cerumen, right ear (Acute) Sensorineural hearing loss, bilateral (Acute) Imbalance (Acute) Arthritis of right knee (Acute) Steroid injection: 01/16/2023 Previous injections including steroid injections and Synvisc injections at [facility]. 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 Hyperkalemia Fatigue Viral upper respiratory tract infection Congenital anomaly of breast Benign paroxysmal positional vertigo Lump of right breast Hand pain Hammer toe Lightheadedness Impaired cognition Hypothyroidism Disequilibrium syndrome Congenital anomaly of tongue History of COVID-19 Senile hyperkeratosis Joint pain Hematochezia Left flank pain Pain in lower limb Neck pain Hypomagnesemia Insomnia Hypercholesterolemia Dizziness Pain in joint of left knee Senile cataract Constipation Atrophic vaginitis Hip pain External hordeolum Muscle pain Cough Sleep disorder Upper respiratory infection Anxiety disorder Bereavement Fecal occult blood test positive Neurologic unpleasant taste Lesion of tongue Shoulder joint pain Ingrowing toenail Osteopenia Diarrhea Knee pain Hypertensive disorder GERD (gastroesophageal reflux disease) Pain in toe Swelling of wrist joint Cramp in limb Functional diarrhea Sinusitis Pain, joint, shoulder, right Urticaria Radicular pain 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 Chest pain Pharyngeal dryness Minimal cognitive impairment Right flank pain Embolism and thrombosis IBS (irritable bowel syndrome) Wrist joint effusion Chronic lower back pain Reflux esophagitis (05/01/14) Vertigo (05/01/14) Surgical History History of total abdominal hysterectomy Status post total hip replacement, left Status post total hip replacement, right Family History Sister Breast cancer Sister Breast cancer Brother Prostate cancer Brother Prostate cancer Brother Prostate cancer Sister Colon cancer Sister Pancreatic cancer Father Myocardial infarct Social History Smoking/Tobacco Use Status: Never Smoking risk assessment performed?: Yes Alcohol Intake: never Drug use: Never Substance use type: does not use Housing: house Current gender identity: female Do you feel safe at home: Yes Do you feel safe in your relationship?: Yes Discharge Plan Disposition Patient Disposition: Home Condition: Stable Discharge Details Clinical Impression: Lumbar strain, Contusion, Cervical strain Primary Care Provider: Primitivo Benjamin ED Provider: Anne Caballero Home Meds and New Rx's Prescriptions: Continued famotidine 20 mg tablet 20 mg PO DAILY hydrochlorothiazide 25 mg tablet 25 mg PO DAILY losartan 50 mg tablet 100 mg PO DAILY ergocalciferol (vitamin D2) 1,250 mcg (50,000 unit) capsule 1,250 mcg PO QMONTH celecoxib 200 mg capsule 200 mg PO BID Qty: 60 2RF amoxicillin 500 mg tablet 500 mg PO .FOR DENTAL levothyroxine 75 mcg capsule 75 mcg PO DAILY sertraline 25 mg tablet 25 mg PO DAILY fluoride (sodium) 1.1 % paste 1 applic dental DAILY fluticasone propionate [Children's Flonase Allergy Rlf] 50 mcg/actuation spray,suspension 1 spray intranasal DAILY Rx Instructions: administer into each nostril magnesium L-lactate [Magtab] 84 mg tablet extended release 84 mg PO DAILY meclizine 25 mg tablet 25 mg PO TID PRN Myrbetriq 25 mg tablet extended release 24 hr 25 mg PO DAILY Premarin 0.625 mg/gram cream 0.625 mg vaginal DAILY Rx Instructions: off 5 days; repeat cycle aspirin 81 mg Tablet,Delayed Release (Dr/Ec) 81 mg PO DAILY Discharge Instructions Instructions: Cervical Strain (ED), Low Back Strain (ED), Contusion in Adults (ED) Additional Instructions: Please take Tylenol as needed for pain Wear micro spikes when you are outside Please be reevaluated in 1 to 2 weeks with persistent pain but I expect her symptoms will resolve slowly Do not exceed a 3 g of Tylenol daily Please return should you have new or worsening complaints you have a nodule on your thyroid, please follow-up with your doctor for further evaluation Referrals: Primitivo Benjamin [Primary Care Provider] -
[2023-07-25 09:02] LABS: Abs Immature Grans 0.01 10^3/uL (0.0-0.06); Absolute Basophil Count 0.07 10^3/uL (0.0-0.2); Absolute Eosinophil Count 0.27 10^3/uL (0.0-0.7); Absolute Monocyte Count 0.38 10^3/uL (0.1-0.8); Basophils % 1.2; Eosinophils % 4.5; HGB 12.2 g/dL (11.2-15.7); Immature Grans % 0.2; Lymphocytes % 29.9; MCH 30.3 pg (27.0-33.0); MCHC 33.9 % (32.0-36.0); MCV 90 fL (80-95); MPV 9.4 fL (8.0-11.0); Monocytes % 6.3; Neutrophils % 57.9; Platelet Count 261 10^3/uL (130-400); RBC 4.02 10^6/uL (3.93-5.22); RDW 13.6 % (11.7-14.6); RDW-SD 44.8 fL; WBC 6.03 10^3/uL (4.4-10.8)
[2023-07-25 09:17] LABS: ALT 14 U/L (14-59); AST 14 U/L (15-37); Albumin 3.4 g/dL (3.4-5.0); Alkaline Phosphatase 80 U/L (46-116); Anion Gap 6.5 mmol/L (3-11); BUN 25 mg/dL (7-18); Bilirubin, Total 0.6 mg/dL (0.2-1.0); CO2 30.5 mmol/L (21.0-32.0); CREATININE 1.1 mg/dL (0.55-1.02); Calcium 9.4 mg/dL (8.5-10.1); Chloride 104 mmol/L (98-107); Estimated GFR 49.24 (mL/min/1.73m2); Glucose 107 mg/dL (74-106); Lipase 28 U/L (16-77); Potassium 3.3 mmol/L (3.5-5.1); Sodium 141 mmol/L (136-145); Total Protein 6.9 g/dL (6.4-8.2)
[2023-07-25 09:28] LABS: Bilirubin Negative (Negative); Blood Trace-lysed (Negative); Clarity Clear (Clear); Glucose Negative (Negative); Ketones Negative (Negative); Leukocyte Esterase Small (Negative); Nitrite Negative (Negative); Specific Gravity 1.025 (1.005-1.025); Urobilinogen 0.2 mg/dL (Up to 0.2)
[2023-07-25] MEDS: Omnipaque 350 MG/ML 100 ML BTL IJ (09:29)
[2023-07-25] MEDS: Normal Saline - Diluent 50 ML VIAL IJ (09:30)
[2023-07-25 09:37] LABS: Bacteria Rare HPF (Negative); C & S Indicated? Yes; Casts Negative LPF (Negative); Crystals Negative HPF (Negative); Epithelial Cells Few HPF (Negative); Mucus Negative (Negative); RBC 0-2 HPF (0-2)
[2023-07-25 11:31] VITALS: BP 134/58; PULSE 64; RESP 18; O2SAT 96
== END 2023-07-25 11:32 | disposition home or self-care (01) ==
PROVIDERS: Emergency Provider Physician Assistant; PCP Family Medicine
DX: S39.012A Strain of muscle, fascia and tendon of lower back, initial encounter (principal); S16.1XXA Strain of muscle, fascia and tendon at neck level, initial encounter; S30.0XXA Contusion of lower back and pelvis, initial encounter; E04.1 Nontoxic single thyroid nodule; W00.0XXA Fall on same level due to ice and snow, initial encounter; Y93.01 Activity, walking, marching and hiking; Y92.89 Other specified places as the place of occurrence of the external cause
CPT/HCPCS: 36415; 74177; 80053; 83690; 99285; 70450; 71260; 72125; 81003; 81015; 85025; 87086; 99284; J3490

== ENCOUNTER → 2023-09-04 10:17 | Outpatient (BNVA) | payer MEDICARE, SELFPAY | PROVIDERS: PCP Family Medicine; Visit Provider Student in an Organized Health Care Education/Training Program | DX: M17.11 Unilateral primary osteoarthritis, right knee (principal); M17.12 Unilateral primary osteoarthritis, left knee | CPT/HCPCS: 20610; J1040 ==

== ENCOUNTER 2023-09-18 21:34 | Outpatient (REF) | payer MEDICARE, SELFPAY ==
[2023-09-18 22:51] LABS: C Diff PCR Negative (Negative)
[2023-09-19 23:59] LABS: Campylobacter PCR Negative (Negative); Salmonella PCR Negative (Negative); Shiga Toxin PCR Negative (Negative); Shigella/Enteroinvasive Ecoli Negative (Negative)
== END 2023-09-18 21:35 | disposition home or self-care (01) ==
LOC: LBN 21:34
PROVIDERS: PCP Family Medicine; Visit Provider Family Medicine
DX: R19.7 Diarrhea, unspecified (principal)
CPT/HCPCS: 87329; 87493; 87505

== ENCOUNTER 2023-10-04 16:22 | Outpatient (REF) | payer MEDICARE, SELFPAY ==
[2023-10-04 18:29] LABS: C Diff PCR Negative (Negative)
[2023-10-05 23:29] LABS: Campylobacter PCR Negative (Negative); Salmonella PCR Negative (Negative); Shiga Toxin PCR Negative (Negative); Shigella/Enteroinvasive Ecoli Negative (Negative)
== END 2023-10-04 16:23 | disposition home or self-care (01) ==
LOC: LBN 16:22
PROVIDERS: PCP Family Medicine; Visit Provider Family Medicine
DX: R19.7 Diarrhea, unspecified (principal)
CPT/HCPCS: 87329; 87493; 87505

== ENCOUNTER → 2023-10-23 11:03 | Outpatient (BNVA) | payer MEDICARE, SELFPAY | PROVIDERS: PCP Family Medicine; Referring Provider Family Medicine; Visit Provider Student in an Organized Health Care Education/Training Program | DX: M17.11 Unilateral primary osteoarthritis, right knee (principal); M70.61 Trochanteric bursitis, right hip; M17.12 Unilateral primary osteoarthritis, left knee | CPT/HCPCS: 20610; J1010; J7318 ==

== ENCOUNTER → 2023-11-22 00:49 | Outpatient (CLI) | payer MEDICARE, SELFPAY ==
--- NOTE | 2023-11-22 | DI.US_ITS ---
Exam(s) US THYROID EXAM: US THYROID CLINICAL HISTORY: ? LT THYROID NODULE ON CT SCAN. TECHNIQUE: Ultrasound thyroid performed using standard protocol. COMPARISON: CT CT CHEST/ABD/PEL W from 07/25/2023 FINDINGS: Thyroid lobes are upper normal size and contain nodules, seen on recent CT scan. RIGHT THYROID LOBE: Measures 2.7 cm AP x 3.1 cm wide x 5.3 cm craniocaudal Echotexture of the right lobe is heterogeneous but there does appear to be 1 discernible mixed solid cystic nodule which measures 1.6 x 1.7 x 1.2 cm. Grading of this nodule is as follows: Composition: Mixed solid cystic-1 point Echogenicity: Isoechoic to surrounding tissue-1 point Shape: Wider than taller-0 points Margin: Smooth- 0 points Echogenic Foci: None Total Points for this nodule: 2 ACR Ti-Rads Category: TR2 This non suspicious nodule can be followed conservatively ISTHMUS: Normal thickness. There are no nodules in the isthmus. LEFT THYROID LOBE: Measures 2.8 cm AP x 2.6 wide x 4.6 cm craniocaudal Contains a dominant solid nodule which measures 2.5 x 2.7 x 2.5 cm Grading of this nodule is as follows: Composition: Solid-2 points Echogenicity: Isoechoic to surrounding gland parenchymal-1 points Shape: Taller than wider in the transverse plane-3 points Margin: Indistinct-0 points Echogenic Foci: None-0 points Total points for this nodule: 6 ACR Ti-Rads Category: 4 This TR 4 level nodule should undergo ultrasound guided FNA as it measures greater than 1.5 cm. LYMPH NODES: There is no significant adenopathy. IMPRESSION: 1. The dominant solid nodule in the left lobe is TR 4 level nodule which measures 2.5 x 2.7 x 2.5 cm and which should undergo ultrasound-guided FNA as it measures greater than 1.5 cm. 2. The above described TR 2 level nodule in the right lobe does not require FNA and can be followed 3. There is no significant lymphadenopathy. DATA REPOSITORY:
== END ==
PROVIDERS: PCP Family Medicine; Visit Provider Nurse Practitioner Family
DX: E04.1 Nontoxic single thyroid nodule (principal)
CPT/HCPCS: 76536

== ENCOUNTER → 2024-01-01 10:24 | Outpatient (BNVA) | payer MEDICARE, SELFPAY | PROVIDERS: PCP Family Medicine; Referring Provider Family Medicine; Visit Provider Student in an Organized Health Care Education/Training Program | DX: M17.11 Unilateral primary osteoarthritis, right knee (principal); M17.12 Unilateral primary osteoarthritis, left knee | CPT/HCPCS: 20610; J1010 ==

== ENCOUNTER → 2024-03-18 09:26 | Outpatient (BNVA) | payer MEDICARE, SELFPAY | PROVIDERS: PCP Family Medicine; Referring Provider Family Medicine; Visit Provider Student in an Organized Health Care Education/Training Program | DX: M17.11 Unilateral primary osteoarthritis, right knee (principal) | CPT/HCPCS: 20610; J1010 ==

== ENCOUNTER 2024-05-27 01:21 | Outpatient (CLI) | payer MEDICARE, SELFPAY ==
--- NOTE | 2024-05-27 | DI.US_ITS ---
Exam(s) US HERNIA EXAM: US HERNIA CLINICAL HISTORY: ABD PAIN, R10.9, ? INCISIONAL HERNIA, SUSPECT GAS OR CONSTIPATION. TECHNIQUE: Ultrasound was performed using standard protocol. COMPARISON: No exams were available for comparison FINDINGS: Sonographic assessment utilizing grayscale and color Doppler imaging was performed and targeted to th e area of clinical concern. The right lower quadrant and umbilical area were evaluated sonographically. No evidence of a hernia is seen. No cystic or solid mass is seen sonographically in the interrogated area. IMPRESSION: No evidence of a cystic or solid mass or hernia is seen in the right lower quadrant or umbilical maximiliano on. DATA REPOSITORY:
== END 2024-05-27 01:41 ==
LOC: DI 01:21
PROVIDERS: PCP Family Medicine; Visit Provider Family Medicine
DX: R10.9 Unspecified abdominal pain (principal)
CPT/HCPCS: 76857

== ENCOUNTER → 2024-06-24 14:33 | Outpatient (BNVA) | payer MEDICARE, SELFPAY | PROVIDERS: PCP Family Medicine; Referring Provider Family Medicine | DX: M17.11 Unilateral primary osteoarthritis, right knee (principal); M17.12 Unilateral primary osteoarthritis, left knee | CPT/HCPCS: 20610; J1010 ==

== ENCOUNTER → 2024-09-23 10:47 | Outpatient (BNVA) | payer MEDICARE, SELFPAY | PROVIDERS: PCP Family Medicine; Referring Provider Family Medicine; Visit Provider Student in an Organized Health Care Education/Training Program | DX: M17.11 Unilateral primary osteoarthritis, right knee (principal); M17.12 Unilateral primary osteoarthritis, left knee | CPT/HCPCS: 20610; J1010 ==

== ENCOUNTER 2024-11-20 02:06 | Outpatient (CLI) | payer MEDICARE, SELFPAY ==
--- NOTE | 2024-11-20 | DI.US_ITS ---
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 TECHNIQUE: Ultrasound thyroid performed using standard protocol. COMPARISON: US US THYROID from 11/22/2023 FINDINGS: ISTHMUS: 5 mm RIGHT LOBE: Size: 5.9 x 3.7 x 3.4 cm Echogenicity: Normal. Vascularity: Normal. Nodules: There is a 1.6 x 1.4 x 1.6 cm solid isoechoic nodule in the midpole. Is consistent with a T I rads level 3 nodule. Due to its size, follow-up is recommended. LEFT LOBE: Size: 5.0 x 3.8 x 2.9 cm Echogenicity: Normal. Vascularity: Normal. Nodules: There is a 3.0 x 2.7 x 2.5 cm solid isoechoic nodule in the mid to inferior pole. It is owen ler than wide and contains punctate echogenic foci. It is consistent with a TI rads level 5 nodule. Due to its size, FNA is recommended. There is a 1.4 x 0.8 x 1.1 cm solid hyperechoic nodule more mclean perior in the left lobe. It is consistent with a TI rads level 3 nodule. Due to its size, no follow -up or FNA is recommended. OTHER FINDINGS: None. IMPRESSION: 3.0 x 2.7 x 2.5 cm nodule in the left lobe inferiorly. It is consistent with a TI rads 5 nodule. Du e to its size, FNA is recommended. DATA REPOSITORY:
== END 2024-11-20 02:26 ==
LOC: DI 02:06
PROVIDERS: PCP Family Medicine; Visit Provider Family Medicine
DX: E04.1 Nontoxic single thyroid nodule (principal)
CPT/HCPCS: 76536

== ENCOUNTER → 2024-12-23 10:25 | Outpatient (BNVA) | payer MEDICARE, SELFPAY | PROVIDERS: PCP Family Medicine; Referring Provider Family Medicine; Visit Provider Student in an Organized Health Care Education/Training Program | DX: M17.0 Bilateral primary osteoarthritis of knee (principal) | CPT/HCPCS: 20610; J7318 ==

== ENCOUNTER 2025-01-07 03:26 | Outpatient (CLI) | payer MEDICARE, SELFPAY ==
--- NOTE | 2025-01-07 08:00 | DI.US_ITS ---
Exam(s) US NEEDLE LOCAL OTHER WO RAD EXAM: US NEEDLE LOCAL OTHER WO RAD CLINICAL HISTORY: Left thyroid nodule meeting criteria for biopsy, thyroid nodule, E04.1. COMPARISON: US US THYROID from 11/20/2024 TECHNIQUE: Ultrasound was provided for Dr. Hall for guidance with left thyroid FNA. FINDINGS: Please see procedure report for details. DATA REPOSITORY:
--- NOTE | 2025-01-07 12:30 | PAPNONF_PTH ---
PATIENT: Maritza Darby LOC: [facility] U#:[id number] AGE/SX: 89/F ROOM: RE01/07/[address]: Elvin Hall MD : [id number] BED: DIS: 01/07/2025 SPEC #: [id number] RECD: 01/07/25 13:16 STATUS: YAW RESue #: [id number] PENNY: 01/07/25 12:[address]: Elvin Hall DEPT: [facility] RECD BY: Anne Scott ENTERED: 01/07/25 13:16 SP TYPE: JONNY COLEMAN DR: Primitivo Benjamin Tissues: 1 - BODY FLUID CYTO-FINE NEEDLE [facility] Procedures: BODY FLUID CYTO-FINE NEEDLE ASPIRATE[facility] Comments: [id number] (PATH FNA CONSULT) (REFRIGERATED)
--- NOTE | 2025-01-07 13:02 | OPPNE_ITS ---
Date of service: 01/07/25 Time of Service: 13:02 Procedure Note Date of procedure: 01/07/25 Procedure: Ultrasound-guided FNA, left thyroid nodule, pathology present Surgeon/Proceduralist/Physician: Elvin Hall Procedure Diagnosis: Left thyroid nodule Procedure Indications: The patient has a left-sided thyroid nodule meeting criteria for biopsy. Options were explained the patient regarding further management. She wished to proceed with ultrasound-guided FNA. Consent was filled out and signed. Risks including bleeding, infection, need for further procedure, and failure to get an answer were discussed at length. The below was then performed. Procedure Description: The patient was positioned in supine position with her neck slightly extended and she was prepped and draped in appropriate fashion. Ultrasound probe was used to localize a left-sided thyroid nodule, and then 1% lidocaine with 1/100,000 epinephrine was injected the skin and subcutaneous tissues overlying the medial aspect of the nodule. A 25-gauge needle was then passed into the thyroid nodule and then handed to pathology who verified adequate cellularity. Once adequate cellularity had been verified, 2 additional passes were made for potential Afirma testing. Wound was inspected for hemostasis and after ensuring adequate hemostasis, a sterile dressing was applied. The patient was then allowed to sit, stand, and ambulate. Her vital signs remained stable. She will call me if she does not hear from me within 1 week with regard to pat hology. She will call with any signs of infection. She will call with any concerns. She will avoid strenuous activity today. She may use Tylenol for discomfort. She had no further questions. She is comfortable with the plan.
== END 2025-01-07 03:46 ==
PROVIDERS: PCP Family Medicine; Visit Provider Otolaryngology
DX: E04.1 Nontoxic single thyroid nodule (principal)
CPT/HCPCS: 10005; 76942; 88104

== ENCOUNTER 2025-02-18 11:21 | Outpatient (CLI) | payer MEDICARE, SELFPAY ==
--- NOTE | 2025-02-18 | DI.RAD_ITS ---
Exam(s) XR LUMBAR SPINE COMP W FLEX/EX EXAM: XR LUMBAR SPINE COMP W FLEX/EX CLINICAL HISTORY: INJURY FALL W19.XXXA. TECHNIQUE: 2D digital imaging was performed. Seven views. Flexion and extension lateral views were performed. COMPARISON: No exams were available for comparison FINDINGS: BONES: No fracture or destructive lesion. Vertebral body heights are maintained. Moderate to severe facet hypertrophy identified greater at the lower lumbar levels.. Bilateral hip prostheses. DISKS: Advanced degenerative disc changes throughout. Prominent osteophytes. ALIGNMENT: levoscoliosis at the upper lumbar region. No subluxation with flexion or extension. SOFT TISSUE: Surgical clips in the upper pelvis. Vascular calcifications. IMPRESSION: Advanced degenerative changes. Upper lumbar scoliosis. DATA REPOSITORY: RADIATION DOSE DELIVERED:
--- NOTE | 2025-02-18 | DI.RAD_ITS ---
Exam(s) XR HIP RT COMPLETE AP PELVIS EXAM: XR HIP RT COMPLETE AP PELVIS CLINICAL HISTORY: PAIN RT HIP M25.551. TECHNIQUE: 2D digital imaging was performed. Three views. COMPARISON: CR,XR XR HIP RT COMPLETE AP PELVIS from 12/13/2020 FINDINGS: BONES: No acute fracture is present. No bony destructive lesion is seen. JOINTS: No dislocation present. Stable appearance of bilateral hip prostheses. No abnormal surrounding lucencies. There are degenerative changes in the SI joints, right greater left. SOFT TISSUE: Vascular calcifications. Surgical clips in upper pelvis. IMPRESSION: Stable appearance of bilateral hip prostheses. DATA REPOSITORY: RADIATION DOSE DELIVERED:
--- NOTE | 2025-02-18 14:10 | DI.RAD_ITS ---
Exam(s) XR SHOULDER RT COMPLETE 2+V EXAM: XR SHOULDER RT COMPLETE 2+V CLINICAL HISTORY: PAIN RT SHOULDER JOINT M25.511. TECHNIQUE: 2D digital imaging was performed. Five views. COMPARISON: No exams were available for comparison FINDINGS: BONES: No acute fracture is present. No bony destructive lesion is seen. Ring at the tip of the acromion and greater tuberosity. JOINTS: No dislocation present. Spurring at the AC joint. Glenohumeral joint space is maintained. Mild periarticular spurring. SOFT TISSUE: Normal. IMPRESSION: Degenerative changes. No acute abnormality. DATA REPOSITORY: RADIATION DOSE DELIVERED:
== END 2025-02-18 11:41 ==
LOC: DI 11:21
PROVIDERS: PCP Family Medicine; Visit Provider Family Medicine
DX: M19.011 Primary osteoarthritis, right shoulder (principal); W19.XXXA Unspecified fall, initial encounter; Z96.641 Presence of right artificial hip joint; Z96.642 Presence of left artificial hip joint; M41.86 Other forms of scoliosis, lumbar region
CPT/HCPCS: 72114; 73030; 73502

== ENCOUNTER 2025-03-13 14:42 | Outpatient (CLI) | payer MEDICARE, SELFPAY ==
--- NOTE | 2025-03-13 14:00 | DI.RAD_ITS ---
Exam(s) XR KNEE LT 3V AP,LAT,BLAIR EXAM: XR KNEE LT 3V AP,LAT,BLAIR CLINICAL HISTORY: L knee pain/OA. TECHNIQUE: 2D digital imaging was performed. Three views. COMPARISON: CR,DOC XR KNEE 4V LT* from 03/22/2022 CR XR KNEE RT 3V AP,LAT,BLAIR from 03/13/2025 FINDINGS: BONES: No acute fracture is present. No bony destructive lesion is seen. Flattening of the medial femoral condyle. JOINTS: There is severe narrowing of the medial femoral tibial joint space, with a [id number] appearance. This causes varus angulation at the knee. There is prominent periarticular spurring. The lateral femoral tibial joint space shows compensatory widening. There is mild spurring at the patellofemoral joint. No joint effusion is seen. SOFT TISSUE: Prominent vascular calcifications. IMPRESSION: Severe degenerative changes of the medial femoral tibial joint. DATA REPOSITORY: RADIATION DOSE DELIVERED:
--- NOTE | 2025-03-13 14:00 | DI.RAD_ITS ---
Exam(s) XR KNEE RT 3V AP,LAT,BLAIR EXAM: XR KNEE RT 3V AP,LAT,BLAIR CLINICAL HISTORY: R knee pain / OA. TECHNIQUE: 2D digital imaging was performed. Three views. COMPARISON: CR,DOC XR KNEE 4V LT* from 03/22/2022 CR,DOC XR KNEE 4V RT* from 03/22/2022 FINDINGS: BONES: No acute fracture is present. No bony destructive lesion is seen. JOINTS: There is severe narrowing of the medial femoral tibial joint space, with a gflk-hh-lvja appearance. There is prominent periarticular spurring. There is varus angulation at the knee. There also moderate degenerative changes of the lateral femoral tibial joint with periarticular spurring. There is spurring at the femoral intercondylar notch and tibial spines. The patellofemoral joint is suboptimally profiled but there is periarticular spurring. A small joint effusion is seen. SOFT TISSUE: Vascular calcifications. IMPRESSION: Severe degenerative changes of the knee. DATA REPOSITORY: RADIATION DOSE DELIVERED:
== END 2025-03-13 14:43 | disposition home or self-care (01) ==
LOC: DIORS 14:42
PROVIDERS: PCP Family Medicine; Referring Provider Family Medicine; Visit Provider Student in an Organized Health Care Education/Training Program
DX: M17.0 Bilateral primary osteoarthritis of knee (principal)
CPT/HCPCS: 20610; 73562; J1010